=== PATIENT | female | born 1945 | race Caucasian/White ===

== ENCOUNTER 2017-04-30 05:12 | Inpatient (IN) | payer OTHER, MEDICARE ==
[~2017-04-30] VITALS: Ht 172.7 cm; Wt 74.5 kg
[~2017-04-30 05:12] MED LIST: ACET-1600 PO; ASCO10004 PO; ASPI-496 PO; CALC-229 PO; DEXT1DRO6 EACHEYE; DIPH25CA61 PO; GLUC1CAP18 PO; LOSA50TA6 PO; MULT-658 PO; OMEP-110 PO; POTA10TA5 PO; TRAM-47 PO; TURM500C4 PO
[2017-04-30] MEDS ORDERED: VANCOMYCIN PER PHARMACY MC ONE (06:16)
[2017-04-30] MEDS ORDERED: LACTATED RINGERS 1,000 ML IV SCH (06:20)
[2017-04-30] MEDS ORDERED: GABAPENTIN 300 MG CAPSULE PO ONE (06:30)
[2017-04-30] MEDS ORDERED: ACETAMINOPHEN 500 MG TABLET PO ONE (06:30)
[2017-04-30] MEDS ORDERED: VANCOMYCIN 1,400 MG in SODIUM CHLORIDE 0.9% 250 ML IV ONE (06:30)
[2017-04-30] MEDS ORDERED: KETOROLAC 60 MG/2 ML ONE (06:39)
[2017-04-30] MEDS ORDERED: TRANEXAMIC ACID 100 MG/ML, 10ML ONE ×4 (06:39)
[2017-04-30] MEDS ORDERED: SODIUM CHLORIDE 0.9% 100 ML ONE (06:40)
[2017-04-30] MEDS ORDERED: ROPIvacaine/PF 0.2%, 20 ML ONE (06:40)
[2017-04-30] MEDS ORDERED: EPINEPHRINE 1 MG/ML, 1ML ONE (06:40)
[2017-04-30] MEDS ORDERED: VANCOMYCIN 1,000 MG ONE (06:40)
[2017-04-30] MEDS ORDERED: MIDAZOLAM 1 MG/ML, 2ML ONE (06:52)
[2017-04-30] MEDS ORDERED: FENTANYL PF 250 MCG/5ML ONE (06:52)
[2017-04-30 06:53] VITALS: BP 157/91
[2017-04-30] MEDS ORDERED: CEFAZOLIN 1,000 MG ONE (07:16)
[2017-04-30] MEDS ORDERED: PROPOFOL 10 MG/ML, 20ML ONE (07:16)
[2017-04-30] MEDS ORDERED: hydrALAzine 20 MG/ML, 1ML ONE (07:16)
[2017-04-30] MEDS ORDERED: DEXAMETHASONE 4 MG/ML, 1ML ONE (07:16)
[2017-04-30] MEDS ORDERED: HYDROmorphone 1 MG/ML, 1ML IV PRN ×2 (07:30)
[2017-04-30] MEDS ORDERED: DIAZEPAM 5 MG TABLET PO PRN (07:30)
[2017-04-30] MEDS ORDERED: SENNA/DOCUSATE TABLET PO PRN (07:30)
[2017-04-30] MEDS ORDERED: ONDANSETRON 4 MG TABLET PO PRN (07:30)
[2017-04-30] MEDS ORDERED: hydrALAzine 20 MG/ML, 1ML IV PRN (07:30)
[2017-04-30] MEDS ORDERED: LABETALOL 5MG/ML, 20ML IV PRN (07:30)
[2017-04-30] MEDS ORDERED: FENTANYL PF 100 MCG/2ML IV PRN (07:30)
[2017-04-30] MEDS ORDERED: ONDANSETRON 2MG/ML, 2ML IVPush PRN (07:30)
[2017-04-30] MEDS ORDERED: DIPHENHYDRAMINE 25 MG CAPSULE PO PRN (07:30)
[2017-04-30] MEDS ORDERED: ALUMINUM/MAG/SIMETHICONE 30 ML UDC PO PRN (07:30)
[2017-04-30] MEDS ORDERED: MAGNESIUM HYDROXIDE 8%, 30ML UDC PO PRN (07:30)
[2017-04-30] MEDS ORDERED: PROMETHAZINE 25 MG/ML, 1ML IV PRN (07:30)
[2017-04-30] MEDS ORDERED: ACETAMINOPHEN 325 MG TABLET PO PRN (07:30)
[2017-04-30] MEDS ORDERED: ONDANSETRON 2MG/ML, 2ML IV PRN (07:30)
[2017-04-30] MEDS ORDERED: ACETAMINOPHEN 650 MG/20.3 ML UDC PO PRN (07:30)
[2017-04-30] MEDS ORDERED: HYDROmorphone 2 MG/ML, 1ML ONE (08:08)
[2017-04-30] MEDS ORDERED: FENTANYL PF 100 MCG/2ML ONE (08:53)
[2017-04-30] MEDS ORDERED: TRANEXAMIC ACID 1,000 MG in SODIUM CHLORIDE 0.9% 100 ML IVPB ONE (09:00)
[2017-04-30] MEDS: HYDROmorphone 2MG TABLET PO PRN ×3 (09:13→23:09)
[2017-04-30] MEDS ORDERED: ONDANSETRON 2MG/ML, 2ML ONE (09:48)
[2017-04-30] MEDS: D5%-0.45NACL+KCL 20MEQ 1,000 ML IV SCH ×2 (11:20→15:41)
[2017-04-30] MEDS: MULTIVITAMINS/MINERALS TABLET PO SCH (12:59)
[2017-04-30] MEDS: DOCUSATE 100 MG CAPSULE PO SCH ×2 (12:59→21:00)
[2017-04-30] MEDS: TAMSULOSIN 0.4 MG CAP.ER.24H PO SCH (12:59)
[2017-04-30 14:49] VITALS: BP 125/78
[2017-04-30] MEDS: CEFAZOLIN PMX 1GM/50ML 50 ML IVPB SCH (15:42)
[2017-04-30] MEDS: ASPIRIN 81 MG TABLET EC PO SCH (17:37)
[2017-04-30 19:05] VITALS: BP 133/87
[2017-04-30 23:15] VITALS: BP 113/71
[2017-05-01] MEDS ORDERED: CEFAZOLIN PMX 1GM/50ML 50 ML ONE (01:17)
[2017-05-01] MEDS: CEFAZOLIN PMX 1GM/50ML 50 ML IVPB SCH (01:20)
[2017-05-01 02:21] VITALS: BP 123/72
[2017-05-01] MEDS ORDERED: DEXAMETHASONE 4 MG/ML, 1ML IVPush SCH (06:00)
[2017-05-01] MEDS: ASPIRIN 81 MG TABLET EC PO SCH (06:07)
[2017-05-01] MEDS ORDERED: KETOROLAC 30 MG/1 ML IV SCH (07:30)
[2017-05-01] MEDS ORDERED: OMEPRAZOLE 20 MG CAPSULE.DR PO SCH (07:30)
[2017-05-01 08:40] VITALS: BP 116/75
[2017-05-01] MEDS ORDERED: LOSARTAN 50MG TABLET PO SCH (09:00)
[2017-05-01] MEDS ORDERED: DOCU100T3 PO (09:35)
[2017-05-01] MEDS ORDERED: ONDA4TAB13 SL (09:35)
[2017-05-01] MEDS ORDERED: DOCU100C33 PO (09:35)
[2017-05-01] MEDS ORDERED: DIAZ5TAB4 PO (09:36)
[2017-05-01] MEDS ORDERED: HYDR2TAB29 PO (09:37)
[2017-05-01] MEDS: DOCUSATE 100 MG CAPSULE PO SCH (09:44)
[2017-05-01] MEDS: MULTIVITAMINS/MINERALS TABLET PO SCH (09:44)
[2017-05-01] MEDS: TAMSULOSIN 0.4 MG CAP.ER.24H PO SCH (09:45)
== END 2017-05-01 11:14 | disposition home or self-care (01) | DRG 470 ==
LOC: OUT 05:12 → ORIP 07:03 → EDSTATUS 07:30 → 4NOR 10:58 → DCLOUNGE 05-01 11:14
PROVIDERS: ADMIT Orthopaedic Surgery; ATTEND Orthopaedic Surgery
PROC: 0SRC069 Replacement of Right Knee Joint with Oxidized Zirconium on Polyethylene Synthetic Substitute, Cemented, Open Approach (ICD-10-PCS; principal; 2017-04-30 07:30)
DX: M17.11 Unilateral primary osteoarthritis, right knee (principal); Z88.1 Allergy status to other antibiotic agents; Z88.5 Allergy status to narcotic agent; Z88.8 Allergy status to other drugs, medicaments and biological substances; Z88.6 Allergy status to analgesic agent; Z91.041 Radiographic dye allergy status
CPT/HCPCS: 36415; 85014; 85018; J0171; J0690; J1100; J1170; J1885; J2250; J2405; J2704; J2795; J3010; J3370; C1776; J0360; J3480; J7050; J7120

== ENCOUNTER 2017-06-11 10:30 | Inpatient (IN) | payer OTHER, MEDICARE ==
[~2017-06-11] VITALS: Ht 172.7 cm; Wt 84.4 kg
[~2017-06-11 10:30] MED LIST changes: +DIAZ5TAB4 PO; +DOCU100C33 PO; +DOCU100T3 PO; +HYDR2TAB29 PO; +ONDA4TAB13 SL
[2017-06-11] MEDS ORDERED: FENTANYL PF 250 MCG/5ML ONE (12:12)
[2017-06-11] MEDS ORDERED: LACTATED RINGERS 1,000 ML IV SCH (12:16)
[2017-06-11] MEDS ORDERED: TRANEXAMIC ACID 100 MG/ML, 10ML ONE ×4 (12:28→12:29)
[2017-06-11] MEDS ORDERED: KETOROLAC 60 MG/2 ML ONE (12:28)
[2017-06-11] MEDS ORDERED: ROPIvacaine/PF 0.2%, 20 ML ONE ×2 (12:29→12:53)
[2017-06-11] MEDS ORDERED: EPINEPHRINE 1 MG/ML, 1ML ONE (12:29)
[2017-06-11] MEDS ORDERED: SODIUM CHLORIDE 0.9% 100 ML ONE (12:29)
[2017-06-11] MEDS ORDERED: ACETAMINOPHEN 500 MG TABLET PO ONE (12:30)
[2017-06-11] MEDS ORDERED: GABAPENTIN 300 MG CAPSULE PO ONE (12:30)
[2017-06-11] MEDS ORDERED: PLEASE ENTER HEIGHT AND WEIGHT MC SCH (12:30)
[2017-06-11 12:39] VITALS: BP 163/92
[2017-06-11] MEDS ORDERED: ACETAMINOPHEN 500 MG TABLET ONE (13:02)
[2017-06-11] MEDS ORDERED: GABAPENTIN 300 MG CAPSULE ONE (13:03)
[2017-06-11] MEDS ORDERED: VANCOMYCIN PER PHARMACY MC STA (13:09)
[2017-06-11] MEDS ORDERED: HYDROmorphone 2MG TABLET PO STA (13:11)
[2017-06-11] MEDS ORDERED: HYDROmorphone 2MG TABLET ONE (13:17)
[2017-06-11] MEDS ORDERED: MIDAZOLAM 1 MG/ML, 2ML ONE (13:28)
[2017-06-11] MEDS ORDERED: PROPOFOL 10 MG/ML, 20ML ONE (13:29)
[2017-06-11] MEDS ORDERED: ONDANSETRON 2MG/ML, 2ML ONE (13:29)
[2017-06-11] MEDS ORDERED: CEFAZOLIN 1,000 MG ONE (13:29)
[2017-06-11] MEDS ORDERED: ONDANSETRON 2MG/ML, 2ML IV PRN (13:30)
[2017-06-11] MEDS ORDERED: ALUMINUM/MAG/SIMETHICONE 30 ML UDC PO PRN (13:30)
[2017-06-11] MEDS ORDERED: DIPHENHYDRAMINE 25 MG CAPSULE PO PRN (13:30)
[2017-06-11] MEDS ORDERED: HYDROmorphone 2MG TABLET PO PRN ×2 (13:30→17:00)
[2017-06-11] MEDS ORDERED: ONDANSETRON 4 MG TABLET PO PRN (13:30)
[2017-06-11] MEDS ORDERED: ACETAMINOPHEN 650 MG/20.3 ML UDC PO PRN (13:30)
[2017-06-11] MEDS ORDERED: DIAZEPAM 5 MG TABLET PO PRN (13:30)
[2017-06-11] MEDS ORDERED: MAGNESIUM HYDROXIDE 8%, 30ML UDC PO PRN (13:30)
[2017-06-11] MEDS ORDERED: VANCOMYCIN 1,400 MG in SODIUM CHLORIDE 0.9% 250 ML IV ONE (13:30)
[2017-06-11] MEDS ORDERED: SENNA/DOCUSATE TABLET PO PRN (13:30)
[2017-06-11] MEDS ORDERED: HYDROmorphone 1 MG/ML, 1ML IV PRN (13:30)
[2017-06-11] MEDS ORDERED: LABETALOL 5MG/ML, 20ML ONE ×2 (13:52)
[2017-06-11] MEDS ORDERED: PROMETHAZINE 25 MG/ML, 1ML IV PRN (14:00)
[2017-06-11] MEDS ORDERED: FENTANYL PF 100 MCG/2ML IV PRN (14:00)
[2017-06-11] MEDS ORDERED: hydrALAzine 20 MG/ML, 1ML IV PRN (14:00)
[2017-06-11] MEDS ORDERED: LORazepam 2 MG/ML, 1ML IVPush PRN (14:00)
[2017-06-11] MEDS ORDERED: LABETALOL 5MG/ML, 20ML IV PRN (14:00)
[2017-06-11] MEDS ORDERED: ONDANSETRON 2MG/ML, 2ML IVPush PRN (14:00)
[2017-06-11] MEDS ORDERED: ROPIvacaine/PF 0.2%, 100ML 550 ML (check volume) INJ ONE (14:00)
[2017-06-11] MEDS ORDERED: HYDROmorphone 2MG TABLET PO ONE (14:30)
[2017-06-11] MEDS: MEPERIDINE/PF 25MG/0.5ML IVPush PRN ×2 (15:15→15:45)
[2017-06-11] MEDS ORDERED: MEPERIDINE/PF 50 MG/ML ONE (15:18)
[2017-06-11] MEDS ORDERED: TRANEXAMIC ACID 1,000 MG in SODIUM CHLORIDE 0.9% 100 ML IVPB ONE (15:30)
[2017-06-11] MEDS: D5%-0.45NACL+KCL 20MEQ 1,000 ML IV SCH ×2 (17:30→22:13)
[2017-06-11 20:40] VITALS: BP 133/76
[2017-06-11] MEDS: CEFAZOLIN PMX 1GM/50ML 50 ML IVPB SCH (20:57)
[2017-06-11] MEDS: DOCUSATE 100 MG CAPSULE PO SCH (20:57)
[2017-06-11] MEDS ORDERED: DIPHENHYDRAMINE 12.5MG/5ML ORAL SOL PO SCH (21:00)
[2017-06-11] MEDS ORDERED: ARTIFICIAL TEARS 15 DROP/ML BOTTLE OP SCH (21:00)
[2017-06-12 00:36] VITALS: BP 131/85
[2017-06-12 04:12] VITALS: BP 132/79
[2017-06-12] MEDS: CEFAZOLIN PMX 1GM/50ML 50 ML IVPB SCH (04:40)
[2017-06-12] MEDS ORDERED: ASPIRIN 81 MG TABLET EC PO SCH (06:00)
[2017-06-12] MEDS ORDERED: DEXAMETHASONE 4 MG/ML, 1ML IVPush SCH (06:00)
[2017-06-12] MEDS ORDERED: OMEPRAZOLE 20 MG CAPSULE.DR PO SCH (07:30)
[2017-06-12 08:34] VITALS: BP 156/99
[2017-06-12] MEDS ORDERED: LOSARTAN 50MG TABLET PO SCH (09:00)
[2017-06-12] MEDS: DOCUSATE 100 MG CAPSULE PO SCH (09:12)
[2017-06-12] MEDS ORDERED: KETOROLAC 30 MG/1 ML IV SCH (18:00)
== END 2017-06-12 10:55 | disposition home or self-care (01) | DRG 470 ==
LOC: ORIP 11:34 → 4NOR 16:35 → DCLOUNGE 06-12 10:41
PROVIDERS: ADMIT Orthopaedic Surgery; ATTEND Orthopaedic Surgery
PROC: 0SRD069 Replacement of Left Knee Joint with Oxidized Zirconium on Polyethylene Synthetic Substitute, Cemented, Open Approach (ICD-10-PCS; principal; 2017-06-11 13:30)
DX: M17.12 Unilateral primary osteoarthritis, left knee (principal); Z88.5 Allergy status to narcotic agent; Z88.8 Allergy status to other drugs, medicaments and biological substances; Z91.041 Radiographic dye allergy status; Z91.040 Latex allergy status
CPT/HCPCS: 36415; 85014; 85018; 93005; C1713; J0171; J0690; J1100; J1885; J2175; J2250; J2405; J2704; J2795; J3010; C1776; J3480; J7120